=== PATIENT | male | born 1990 | race African-American/Black ===

== ENCOUNTER 2024-04-27 12:18 | Emergency (ER) | payer MEDICAID ==
[~2024-04-27] VITALS: Ht 175.3 cm; Wt 105.0 kg
[2024-04-27 12:37] VITALS: O2SAT 100
[2024-04-27 12:41] VITALS: BP 131/88; PULSE 95; RESP 18; TEMP 97.8; O2SAT 98
[2024-04-27 13:24] LABS: CHLORIDE 103 mEq/L (98-107); HEMATOCRIT. 42.8 % (42.0-52.0); HEMOGLOBIN. 14.1 g/dL (14.0-18.0); MEAN CORPUSCULAR HEMOGLOBIN 28.3 pg (28.0-32.0); MEAN CORPUSCULAR VOLUME 85.8 fL (80.0-94.0); MEAN PLATELET VOLUME 8.5 fl (7.4-10.4); PLATELET 227 x1000/uL (130-400); POTASSIUM 4.7 mEq/L (3.5-5.1); RED BLOOD CELL COUNT 4.99 mill/uL (4.7-6.1); RED CELL DISTRIBUTION WIDTH 12.7 % (11.6-14.6); SODIUM 140 mEq/L (136-145); WHITE BLOOD COUNT 3.4 x1000/uL (4.5-11.0)
[2024-04-27 13:25] LABS: CALCIUM 9.8 mg/dL (8.7-10.4); CARBON DIOXIDE 35 mEq/L (21-32); DIFFERENTIAL COMMENT 1
[2024-04-27 13:30] LABS: CREATININE 1.4 mg/dL (0.6-1.3); GLUCOSE 101 mg/dL (70-105); UREA NITROGEN BLOOD 16 mg/dL (9-23)
[2024-04-27 14:02] LABS: PLATELET ESTIMATE NORMAL
== END 2024-04-27 14:19 | disposition left against medical advice (07) ==
LOC: ER 12:18
DX: R10.9 Unspecified abdominal pain (principal); Z53.21 Procedure and treatment not carried out due to patient leaving prior to being seen by health care provider
CPT/HCPCS: 36415; 80048; 85025

== ENCOUNTER 2024-05-01 11:40 | Emergency (ER) | payer MEDICAID, OTHER ==
[~2024-05-01] VITALS: Ht 180.3 cm; Wt 107.0 kg
[2024-05-01 11:47] VITALS: O2SAT 100
[2024-05-01 11:51] VITALS: TEMP 36.66960; O2SAT 100
[2024-05-01 12:35] LABS: BASOPHILS % 0.6 % (0.0-2.0); EOSINOPHILS % 0.6 % (0.0-5.0); HEMATOCRIT. 41.7 % (42.0-52.0); HEMOGLOBIN. 13.5 g/dL (14.0-18.0); LYMPHOCYTES % 17.5 % (20.0-50.0); MEAN CORPUSCULAR HEMOGLOBIN 28.2 pg (28.0-32.0); MEAN CORPUSCULAR HGB CONC 32.4 g/dL (31.0-37.0); MEAN CORPUSCULAR VOLUME 87.2 fL (80.0-94.0); MEAN PLATELET VOLUME 8.6 fl (7.4-10.4); MONOCYTES % 10.1 % (2.0-8.0); NEUTROPHILS % 71.2 % (40.0-76.0); PLATELET 238 x1000/uL (130-400); RED BLOOD CELL COUNT 4.78 mill/uL (4.7-6.1); RED CELL DISTRIBUTION WIDTH 13.3 % (11.6-14.6); WHITE BLOOD COUNT 3.9 x1000/uL (4.5-11.0)
[2024-05-01 12:41] LABS: CARBON DIOXIDE 30 mEq/L (21-32); CHLORIDE 110 mEq/L (98-107); INR 0.9; POTASSIUM 4.3 mEq/L (3.5-5.1); PROTHROMBIN TIME 10.4 sec (9.6-11.0); SODIUM 144 mEq/L (136-145)
[2024-05-01 12:42] LABS: CALCIUM 9.4 mg/dL (8.7-10.4)
[2024-05-01 12:46] LABS: CREATININE 1.1 mg/dL (0.6-1.3)
[2024-05-01 12:47] LABS: GLUCOSE 103 mg/dL (70-105); UREA NITROGEN BLOOD 14 mg/dL (9-23)
[2024-05-01 12:48] LABS: ALANINE AMINOTRANSFERASE 60 IU/L (10-49); ALBUMIN 4.2 g/dL (3.2-4.8); ASPARTATE AMINOTRANSFERASE 22 IU/L (<34)
[2024-05-01 12:49] LABS: BILIRUBIN TOTAL 0.2 mg/dL (0.1-1.0)
[2024-05-01 12:55] LABS: BILIRUBIN DIRECT < 0.1 mg/dL (<=3.0); ETHANOL BLOOD < 10 mg/dL (<10)
[2024-05-01 13:05] VITALS: BP 131/97; PULSE 83; RESP 16
[2024-05-01] MEDS: FAMOTIDINE 20MG/2ML VIAL IV STA (13:05)
[2024-05-01] MEDS: MORPHINE SULFATE 4 MG/ML INJ (FOR IV/IM USE) IV STA (13:05)
[2024-05-01] MEDS: ONDANSETRON HCL 4MG/2ML INJ IV STA (13:05)
[2024-05-01] MEDS: SODIUM CHLORIDE 0.9% 1,000 ML IV ONE (13:05)
== END 2024-05-01 15:51 | disposition home or self-care (01) ==
LOC: ER 11:40
DX: R10.9 Unspecified abdominal pain (principal)
CPT/HCPCS: 80076; 80048; 80320; 83690; 85025; 85610; 36415; 76705; 96361; 96374; 96375; 99285; J3490; J2405; J2270; J7030; Z7610; G0480